=== PATIENT | male | born 1970 ===

== ENCOUNTER → 2017-12-02 | Emergency (ER) | payer OTHER ==
[~2017-12-02] VITALS: Ht 175.3 cm; Wt 94.3 kg
[~2017-12-02] MED LIST: TUSNEL LIQUID178 ML PO
== END | disposition home or self-care (01) ==
LOC: ER 19:48
DX: B34.9 Viral infection, unspecified (principal); E86.0 Dehydration

== ENCOUNTER 2017-12-05 08:09 | Outpatient (CLI) | payer OTHER | END 2017-12-05 08:17 | disposition home or self-care (01) | LOC: LAB 08:09 | DX: R53.83 Other fatigue (principal); Z13.89 Encounter for screening for other disorder ==